=== PATIENT | female | born 1990 | race Two or more races ===

== ENCOUNTER 2017-06-28 02:07 | Emergency (ER) | payer MEDICAID ==
[~2017-06-28] VITALS: Ht 167.6 cm; Wt 88.5 kg
--- NOTE | 2017-06-28 02:21 | NUR ---
Pt ambulated to room with steady gait. Pt c/o severe neck pain, stiffness, decreased ROM due to pain and getting increasingly worse over the last week. Pt also c/o decreased ROM to R. arm due to increased neck pain. As well as numbness and tingling down right arm. Pt has pos CMS to right arm. Pt denies WICK, denies fever or chills, denies any other physical complaints. Pt resting in position of comfort for self, with family at bedside. Awaiting further eval
--- NOTE | 2017-06-28 02:35 | NUR ---
Dr. Keyes at bedside for MSE.
[2017-06-28] MEDS: HYDROMORPHONE 1 MG/1 ML DISP.SYRIN IM ONE (02:53)
[2017-06-28] MEDS: diphenhydrAMINE 50 MG/1 ML VIAL IM ONE (02:54)
--- NOTE | 2017-06-28 02:57 | NUR ---
Pt medicated for pain, will monitor for effects of medication. Pt to CT via mar[facility]
[2017-06-28] MEDS ORDERED: diphenhydrAMINE 50 MG/1 ML VIAL ONE (03:00)
[2017-06-28] MEDS ORDERED: HYDROMORPHONE 1 MG/1 ML DISP.SYRIN ONE (03:00)
--- NOTE | 2017-06-28 03:04 | NUR ---
pt returned from CT, resting in position of comfort for self
--- NOTE | 2017-06-28 04:01 | NUR ---
Pt sts pain improved with medication but conts to be slightly limited in movement due to muscle spasms. Pt stable for discharge per MD. PT given ACI. Pt verbalized understanding of dc instructions. 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
[2017-06-28 04:17] VITALS: BP 109/62
== END 2017-06-28 04:18 | disposition home or self-care (01) ==
LOC: ER 02:18
DX: M54.12 Radiculopathy, cervical region (principal)
CPT/HCPCS: 72125; A4663; J1170; J1200

== ENCOUNTER 2018-02-08 17:38 | Emergency (ER) | payer MEDICAID ==
[~2018-02-08] VITALS: Ht 167.6 cm; Wt 83.9 kg
--- NOTE | 2018-02-08 17:50 | NUR ---
Dr Zeng at the bedside for MSE.
[2018-02-08] MEDS ORDERED: ONDANSETRON 4 MG/2 ML VIAL IV ONE (18:00)
[2018-02-08] MEDS ORDERED: IV NORMAL SALINE 1000 ML BAG IV ONE (18:00)
[2018-02-08] MEDS ORDERED: PANTOPRAZOLE SODIUM 40 MG VIAL IV ONE (18:00)
[2018-02-08] MEDS ORDERED: HYDROMORPHONE 1 MG/1 ML DISP.SYRIN IV ONE (18:00)
[2018-02-08] MEDS ORDERED: PANTOPRAZOLE SODIUM 40 MG VIAL ONE (18:08)
[2018-02-08] MEDS ORDERED: ONDANSETRON 4 MG/2 ML VIAL ONE ×2 (18:08→19:19)
[2018-02-08] MEDS ORDERED: HYDROMORPHONE 4 MG/1 ML DISP.SYRIN ONE (18:09)
[2018-02-08 18:18] LABS: BASOPHILS # (AUTO) 0.1 K/uL (0.0-8.0); EOSINOPHILS # (AUTO) 0.2 K/uL (0.0-0.7); EOSINOPHILS % (AUTO) 2.1 % (0.0-7.0); HEMATOCRIT 40.9 % (31.2-41.9); HEMOGLOBIN 13.8 g/dL (10.9-14.3); LYMPHOCYTES # (AUTO) 3.1 K/uL (20.0-40.0); LYMPHOCYTES % (AUTO) 31.3 % (20.5-51.5); MEAN CORPUSCULAR HEMOGLOBIN 28.3 uug (24.7-32.8); MEAN CORPUSCULAR HGB CONC 34 g/dL (32.3-35.6); MEAN CORPUSCULAR VOLUME 83.8 fL (75.5-95.3); MONOCYTES % (AUTO) 10.3 % (0.0-11.0); NEUTROPHILS # (AUTO) 5.6 K/uL (1.8-8.9); NEUTROPHILS % (AUTO) 55.3 % (38.5-71.5); PLATELET COUNT (AUTO) 420 K/uL (179-408); RED BLOOD CELL COUNT(AUTO) 4.88 MIL/uL (3.63-4.92); WHITE BLOOD COUNT (AUTO) 10.1 K/uL (3.8-11.8)
[2018-02-08 18:26] LABS: CREATININE 0.9 mg/dL (0.6-1.3); POTASSIUM 3.9 mmol/L (3.5-5.1)
[2018-02-08 18:31] LABS: BILIRUBIN,DIRECT 0.1 mg/dL (0.0-0.2); BILIRUBIN,TOTAL 0.2 mg/dL (0.2-1.0); TOTAL PROTEIN, SERUM 8.5 g/dL (6.4-8.2)
--- NOTE | 2018-02-08 18:40 | NUR ---
Pt out of ER for Ct.
--- NOTE | 2018-02-08 19:00 | NUR ---
Pt back from Ct, c/o nausea, made aware. Urine collected and sent to LAB.
[2018-02-08 19:09] LABS: *BILIRUBIN,URIN NEGATIVE (NEGATIVE); *BLOOD, URINE NEGATIVE (NEGATIVE); *CLARITY,URINE CLEAR (CLEAR); *COLOR,URINE YELLOW (YELLOW); *KETONES,URINE NEGATIVE (NEGATIVE); *PROTEIN,URINE NEGATIVE (NEGATIVE); *UROBILINOGEN,URINE 0.2 E.U./dl (NORMAL); LEUKOCYTE ESTERASE ,URINE NEGATIVE (NEGATIVE); NITRITE, URINE NEGATIVE (NEGATIVE); UGLUCOSE NEGATIVE (NEGATIVE)
[2018-02-08 19:14] LABS: SQUAMOUS EPITHELIAL CELL,UR MODERATE /HPF (NONE SEEN); WBC,URINE 0-3 /HPF (0-3)
[2018-02-08] MEDS ORDERED: KETOROLAC TROMETHAMINE 30 MG INJ IVP ONE (19:15)
[2018-02-08] MEDS ORDERED: ONDANSETRON IV *ER 4 MG/2 ML VIAL IV ONE (19:15)
[2018-02-08] MEDS ORDERED: KETOROLAC TROMETHAMINE 30 MG INJ ONE (19:16)
[2018-02-08] MEDS ORDERED: MORPHINE SULFATE 4 MG/1 ML DISP.SYRIN ONE (19:16)
[2018-02-08] MEDS ORDERED: METOCLOPRAMIDE HCL 10 MG/2 ML VIAL ONE (19:35)
[2018-02-08] MEDS ORDERED: METOCLOPRAMIDE HCL 10 MG/2 ML VIAL IV ONE (19:45)
--- NOTE | 2018-02-08 19:52 | NUR ---
Radiology at bedside for US.
--- NOTE | 2018-02-08 20:06 | NUR ---
Radiology completed US. Preliminary results to [facility].
--- NOTE | 2018-02-08 20:42 | NUR ---
IV removed. Catheter intact and site benign. Pressure and 4x4 gauze applied to site. No bleeding noted. Patient discharged to home in stable conditon. Written and verbal after care instructions given. Patient verbalizes understanding of instructions.
== END 2018-02-08 20:43 | disposition home or self-care (01) ==
LOC: ER 17:40
DX: R10.11 Right upper quadrant pain (principal)
CPT/HCPCS: 36415; 71045; 83690; 84703; 85025; 85730; A4663; C9113; J1170; J1885; J2270; J2405; J2765; J7030

== ENCOUNTER 2020-01-15 15:26 | Emergency (ER) | payer BC, MEDICAID ==
[~2020-01-15] VITALS: Ht 167.6 cm; Wt 86.2 kg
--- NOTE | 2020-01-15 16:37 | NUR ---
Patient discharged to home in stable conditon. Written and verbal after care instructions given. Patient verbalizes understanding of instructions.PT WALKS IN STEADY GAIT, THE RESULT OF US PROVIDED FOR PT. 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
[2020-01-15 16:38] VITALS: BP 109/61
== END 2020-01-15 16:39 | disposition other institution (70) ==
LOC: ER 15:27
DX: O20.0 Threatened abortion (principal); Z3A.12 12 weeks gestation of pregnancy
CPT/HCPCS: 76856; A4663